=== PATIENT | female | born 1950 | race Two or more races ===

== ENCOUNTER 2016-11-25 14:33 | Outpatient (CLI) | payer BC, OTHER ==
[~2016-11-25 14:33] MED LIST: ASPI-605 PO; ATEN50TA PO; LOSA-22 PO; OMEP20CA10 PO; SIMV20TA6 PO
[2016-11-25 18:17] LABS: BASOPHILS % (AUTO) 0.6 % (0.0-2.0); EOSINOPHILS # (AUTO) 0.2 K/uL (0.0-0.7); EOSINOPHILS % (AUTO) 3.2 % (0.0-7.0); HEMATOCRIT 41.5 % (37-47); HEMOGLOBIN 13.2 G/DL (12.0-16.0); LYMPHOCYTES # (AUTO) 1.9 K/UL (0.8-4.8); MEAN CORPUSCULAR HEMOGLOBIN 26.6 UUG (27.0-31.0); MEAN CORPUSCULAR HGB CONC 32 g/dL (32.0-37.0); MEAN CORPUSCULAR VOLUME 83.7 FL (81.0-99.0); MONOCYTES # (AUTO) 0.2 K/UL (0.1-1.30); MONOCYTES % (AUTO) 3.6 % (0.0-11.0); NEUTROPHILS # (AUTO) 4.6 K/UL (1.8-8.9); NEUTROPHILS % (AUTO) 65.6 % (38.5-71.5); PLATELET COUNT (AUTO) 315 K/UL (150-450); RED BLOOD CELL COUNT(AUTO) 4.96 MIL/UL (4.2-5.4); WHITE BLOOD COUNT (AUTO) 6.9 K/UL (4.0-11.2)
[2016-11-25 18:24] LABS: BILIRUBIN,TOTAL 0.3 mg/dL (0.2-1.0); CREATININE 0.9 mg/dL (0.6-1.3); MAGNESIUM 2.2 mg/dL (1.8-2.4); POTASSIUM 4.7 mmol/L (3.5-5.1); TOTAL PROTEIN, SERUM 8.2 g/dL (6.4-8.2)
[2016-11-25 18:32] LABS: THYROID STIMULATING HORMONE 1.076 mIU/mL (0.358-3.740)
[2016-11-27 05:06] LABS: VIT D, 25-HYDROXY 21.2 ng/mL (30.0-100.0)
[2016-11-27 08:06] LABS: ESTRADIOL <6.0 pg/mL (.); FOLLICLE STIMULATION HORMONE 19.6 mIU/mL (.); LUTEINIZING HORMONE 8.4 mIU/mL (.); PROLACTIN 5.5 ng/mL (4.8-23.3)
== END 2016-11-25 23:59 | disposition home or self-care (01) ==
LOC: LAB 14:33
PROVIDERS: ATTEND Family Medicine
DX: D35.2 Benign neoplasm of pituitary gland (principal); E55.9 Vitamin D deficiency, unspecified
CPT/HCPCS: 36415; 82306; 82670; 83001; 83002; 83735; 84146; 84443; 84480; 85025

== ENCOUNTER → 2016-12-31 | Outpatient (CLI) | payer BC, OTHER | END | disposition home or self-care (01) | LOC: US 13:13 | PROVIDERS: ATTEND Family Medicine | DX: I83.12 Varicose veins of left lower extremity with inflammation (principal) ==

== ENCOUNTER 2017-09-23 14:52 | Outpatient (CLI) | payer BC, OTHER | END 2017-09-23 23:59 | disposition home or self-care (01) | LOC: RAD 14:52 | DX: Z02.1 Encounter for pre-employment examination (principal) | CPT/HCPCS: 71045 ==

== ENCOUNTER → 2017-12-08 | Outpatient (CLI) | payer BC, OTHER ==
[2017-12-08 12:15] LABS: BASOPHILS # (AUTO) 0.1 K/uL (0.0-8.0); BASOPHILS % (AUTO) 0.8 % (0.0-2.0); EOSINOPHILS # (AUTO) 0.3 K/uL (0.0-0.7); EOSINOPHILS % (AUTO) 4.5 % (0.0-7.0); HEMATOCRIT 41.8 % (31.2-41.9); HEMOGLOBIN 13.8 g/dL (10.9-14.3); LYMPHOCYTES # (AUTO) 2.1 K/uL (20.0-40.0); LYMPHOCYTES % (AUTO) 32.7 % (20.5-51.5); MEAN CORPUSCULAR HGB CONC 33 g/dL (32.3-35.6); MEAN CORPUSCULAR VOLUME 84.4 fL (75.5-95.3); MONOCYTES # (AUTO) 0.3 K/uL (2.0-10.0); MONOCYTES % (AUTO) 4.2 % (0.0-11.0); NEUTROPHILS # (AUTO) 3.6 K/uL (1.8-8.9); NEUTROPHILS % (AUTO) 57.8 % (38.5-71.5); PLATELET COUNT (AUTO) 301 K/uL (179-408); RED BLOOD CELL COUNT(AUTO) 4.95 MIL/uL (3.63-4.92); WHITE BLOOD COUNT (AUTO) 6.3 K/uL (3.8-11.8)
[2017-12-08 12:48] LABS: BILIRUBIN,TOTAL 0.5 mg/dL (0.2-1.0); CREATININE 0.7 mg/dL (0.6-1.3); TOTAL PROTEIN, SERUM 8.4 g/dL (6.4-8.2)
[2017-12-08 12:55] LABS: THYROID STIMULATING HORMONE 1.011 mIU/mL (0.358-3.740)
[2017-12-09 08:07] LABS: PROLACTIN 4.1 ng/mL (4.8-23.3)
[2017-12-10 03:05] LABS: VIT D, 25-HYDROXY 19.5 ng/mL (30.0-100.0)
== END | disposition home or self-care (01) ==
LOC: US 09:46
PROVIDERS: ATTEND Family Medicine
DX: I10 Essential (primary) hypertension (principal); K80.20 Calculus of gallbladder without cholecystitis without obstruction
CPT/HCPCS: 36415; 76700; 82306; 84146; 84443; 85025; 86677

== ENCOUNTER 2018-08-24 14:34 | Outpatient (CLI) | payer BC, OTHER ==
[~2018-08-24 14:34] MED LIST changes: -LOSA-22 PO
[2018-08-24 16:46] LABS: CREATININE 0.7 mg/dL (0.6-1.3); POTASSIUM 4.5 mmol/L (3.5-5.1)
== END 2018-08-24 23:59 | disposition home or self-care (01) ==
LOC: LAB 14:34
PROVIDERS: ATTEND Family Medicine
DX: E83.52 Hypercalcemia (principal)
CPT/HCPCS: 36415; 83970

== ENCOUNTER 2019-07-04 22:19 | Emergency (ER) | payer BC, OTHER ==
[~2019-07-04] VITALS: Ht 162.6 cm; Wt 68.0 kg
[2019-07-04] MEDS ORDERED: COLCHICINE 0.6 MG TABLET ONE (22:57)
[2019-07-04] MEDS ORDERED: INDOMETHACIN 25 MG CAPSULE ONE (22:57)
[2019-07-04] MEDS ORDERED: COLCHICINE 0.6 MG TABLET PO ONE (23:00)
[2019-07-04] MEDS ORDERED: INDOMETHACIN 25 MG CAPSULE PO ONE (23:00)
--- NOTE | 2019-07-04 23:06 | NUR ---
Patient discharged to home in stable conditon. Written and verbal after care instructions given. Patient verbalizes understanding of instructions.
[2019-07-04 23:07] VITALS: BP 152/85
== END 2019-07-04 23:07 | disposition home or self-care (01) ==
LOC: ER 22:19
DX: M10.072 Idiopathic gout, left ankle and foot (principal); I10 Essential (primary) hypertension; Z79.82 Long term (current) use of aspirin; Z79.899 Other long term (current) drug therapy
CPT/HCPCS: A4663